=== PATIENT | male | born 1960 | race Caucasian/White ===

== ENCOUNTER 2017-12-20 18:00 | Emergency (ER) | payer BC ==
[2017-12-20 18:17] VITALS: BP 131/78
--- NOTE | 2017-12-20 18:35 | UC ---
Skin Complaint HPI - HPI Summary HPI Summary: Patient states that he went weir picking on Monday and then sometime after that he noticed a rash on both legs. He states that the rash involves only the exposed areas from below the short line and above his socks. He reports that the rash is pretty itchy. He tried an old topical cream that he had at home without much relief. Denies any cough or short of breath. he denies any other rash and offers no other complaints. the rash is very itchy. - History of Current Complaint Chief Complaint: UCSkin Time Seen by Provider: 12/20/17 18:28 Stated Complaint: RASH Hx Obtained From: Patient, Family/Leaf Sticker Onset/Duration: Gradual Onset Timing: Constant Pain Intensity: 0 Associated Signs & Symptoms: Negative: Fever - Allergy/Home Medications Allergies/Adverse Reactions: Allergies Allergy/AdvReac Type Severity Reaction Status Date / Time No Known Allergies Allergy Verified 12/20/17 18:17 Home Medications: Home Medications Aspirin 81 mg CHEW TAB* [Aspirin Low Dose TAB*] 81 mg PO DAILY 12/20/17 [ History Confirmed 12/20/17] Atorvastatin* [Lipitor*] 10 mg PO DAILY 12/20/17 [History Confirmed 12/20/17] Cholecalciferol (Vitamin D3) [Vitamin D3] 2,000 unit PO DAILY 12/20/17 [History Confirmed 12/20/17] Hydrochlorothiazide TAB* [Hydrodiuril TAB*] 25 mg PO DAILY 12/20/17 [History Confirmed 12/20/17] Ibuprofen TAB* [Motrin TAB* 400 MG] 400 mg PO Q6H PRN 12/20/17 [History Confirmed 12/20/17] Loratadine [Claritin] 10 mg PO DAILY 12/20/17 [History Confirmed 12/20/17] Metoprolol Succinate XL TAB* [Toprol XL TAB*] 25 mg PO BEDTIME 12/20/17 [ History Confirmed 12/20/17] Grant-3 Fatty Acids/Fish Oil [Fish Oil 1,000 mg Capsule] 1 each PO DAILY [History Confirmed 12/20/17] Ramipril CAP* [Altace CAP*] 10 mg PO DAILY 12/20/17 [History Confirmed 12/20/17] Tadalafil [Cialis] 5 mg PO DAILY 12/20/17 [History Confirmed 12/20/17] metFORMIN* [Glucophage 500 MG TAB *] 500 mg PO BID 12/20/17 [History Confirmed 12/20/17] Review of Systems Constitutional: Negative Skin: Rash Eyes: Negative ENT: Negative Respiratory: Negative Cardiovascular: Negative Gastrointestinal: Negative Genitourinary: Negative Motor: Negative Neurovascular: Negative Musculoskeletal: Negative Neurological: Negative Psychological: Negative Is Patient Immunocompromised?: No All Other Systems Reviewed And Are Negative: Yes PMH/Surg Hx/FS Hx/Imm Hx - Additional Past Medical History Additional PMH: allergies Endocrine History: Diabetes, Dyslipidemia Cardiovascular History: Hypertension - Surgical History Surgical History: Yes Surgery Procedure, Year, and Place: 2008 prostate removal - Family History Known Family History: Positive: None - Social History Occupation: Employed Full-time Lives: With Family Alcohol Use: None Substance Use Type: None Smoking Status (MU): Never Smoked Tobacco - Immunization History Vaccination Up to Date: Yes Physical Exam Triage Information Reviewed: Yes Appearance: Well-Appearing Vital Signs: Initial Vital Signs Temp 99.4 F 12/20/17 18:12 Pulse 74 12/20/17 18:12 Resp 16 12/20/17 18:12 BP 131/78 12/20/17 18:12 Pulse Ox 97 12/20/17 18:12 Vital Signs Reviewed: Yes Eyes: Positive: Conjunctiva Clear ENT: Positive: Pharynx normal, TMs normal. Negative: Nasal congestion, Nasal drainage Neck: Positive: Supple, Nontender, No Lymphadenopathy Respiratory: Positive: Lungs clear, Normal breath sounds Cardiovascular: Positive: RRR, No Murmur Abdomen Description: Positive: Nontender, No Organomegaly, Soft Bowel Sounds: Positive: Present Musculoskeletal: Positive: ROM Intact Neurological: Positive: Alert Psychological: Positive: Normal Response To Family, Age Appropriate Behavior Skin Exam: Normal, Other - Patient has scattered red patches to both lower extremities. Some appear as though they may have been vesicular; however, there is a fair amount of excoriation. The areas are not hot and then of the rash is petechial. It does teodoro. It only involves the exposed areas of his legs which corresponded below his shorts line and above his socks. Course/Dx - Course Course Of Treatment: no concern for bacterial infection or infestation. looks c/ w contact dermatitis. - Diagnoses Provider Diagnoses: Contact Dermatitis Discharge - Sign-Out/Discharge Documenting (check all that apply): Patient Departure - Discharge Plan Condition: Stable Disposition: HOME Prescriptions: methylPREDNISolone [Medrol Dosepak 4 MG*] 0 mg PO .SEE BRIAN INSTRUCTION #1 tab Patient Education Materials: Contact Dermatitis (ED) Referrals: Felix Melissa MD [Primary Care Provider] - 7 Days - Billing Disposition and Condition Condition: STABLE Disposition: Home Attestation Statement User Type: Provider - I was available for consult. This patient was seen by the [facility]. The patient was not presented to, seen by, or examined by me. -Tony
== END 2017-12-20 18:44 | disposition home or self-care (01) ==
LOC: UCCORT 18:00
DX: L25.9 Unspecified contact dermatitis, unspecified cause (principal); E11.9 Type 2 diabetes mellitus without complications; I10 Essential (primary) hypertension; Z79.84 Long term (current) use of oral hypoglycemic drugs
CPT/HCPCS: 99202; G0463